=== PATIENT | male | born 1955 | race Caucasian/White ===

== ENCOUNTER 2021-12-23 06:21 | Day surgery (SDC) | payer MEDICARE, OTHER, SELFPAY ==
[2021-12-23] MEDS: Lactated Ringers 1,000 ML 15 ML IV (06:55)
[2021-12-23 06:56] VITALS: BP 145/85; PULSE 77; RESP 18; TEMP 37; O2SAT 98; BMI 57.4
--- NOTE | 2021-12-23 07:51 | RAD_ITS ---
STUDY: INTRAOPERATIVE FLUOROSCOPY TECHNIQUE: The examination was performed with referring physician in attendance. Under fluoroscopic observation, fluoroscopic images were obtained. Radiologist was not present for the study. Radiologist did not perform the procedure. This dictation is for documentation of the radiation dosage only. There is no interpretation of the images. TOTAL NUMBER OF IMAGES: 1 COMPARISON: None RADIATION DOSE: 12 mGy FLUOROSCOPY TIME: 8.7 seconds REASON FOR EXAM: LT HIP INJECTION Male, 66 years old. FINDINGS: Under fluoroscopic assistance, a left hip injection was performed. There is a single images of the left hip. Contrast visualized in the abdomen. RAD/Fluoro Guided Needle Placement IMPRESSION: Fluoroscopic assistance images were obtained. Dictation for documentation purposes only. Electronically Signed: Camilo Taylor MD at 16:15 EDT ,
[2021-12-23] MEDS: Lidocaine 1% (2ml-nursery) 2 ML VIAL (07:56)
[2021-12-23] MEDS: MethylPREDNISolone Acetate 80 MG/ML Vial (07:58)
[2021-12-23] MEDS: Bupivacaine 0.25% 30 ML Vial (07:58)
[2021-12-23 08:05] VITALS: BP 145/85; PULSE 74; RESP 16; TEMP 36.6; O2SAT 95
[2021-12-23 08:10] VITALS: BP 128/76; BP 145/85; PULSE 73; RESP 16; O2SAT 96
[2021-12-23 08:15] VITALS: BP 133/76; BP 145/85; PULSE 72; RESP 16; O2SAT 95
[2021-12-23 08:20] VITALS: BP 144/75; BP 145/85; PULSE 72; RESP 16; TEMP 36.9; O2SAT 95
[2021-12-23 08:52] VITALS: BP 145/85
--- NOTE | 2021-12-23 11:00 | PCM.OPRPT ---
Report of Operation Date of Procedure: 12/23/21 Description of Surgical Findings:: PREOPERATIVE DIAGNOSIS: Osteoarthritis of the left hip POSTOPERATIVE DIAGNOSIS: Osteoarthritis of the left hip PROCEDURE PERFORMED: Left hip intraarticular steroid injection under fluoroscopy guidance. ANESTHESIA: MAC. BLOOD LOSS: Minimal. COMPLICATIONS: None. DESCRIPTION OF PROCEDURE: History and physical of today was reviewed. Risks and benefits of the procedure were explained. The patient understood and agreed to proceed. Informed consent was obtained. IV inserted per routine protocol. The patient was taken to the operating room and placed in the supine position. The left hip area was prepped and draped in a sterile fashion using iodine x3. Under fluoroscopy guidance on AP view, the left hip joint was visualized. The skin and subcutaneous tissue was anesthetized with approximately 3 mL of 1% lidocaine using a 25-gauge regular needle approximately 3 cm cephalad to the left greater trochanter. Under direct visualization with fluoroscopy on an AP view, using a 22-gauge 5-inch spinal needle, the needle was advanced via the skin using the lateral approach. The tip of the needle was maneuvered and directed towards the superiormost aspect of the hip joint. Once the tip of the needle was at the vicinity of the joint, after negative aspiration for blood and positive aspiration of synovial fluid, a total of 1 mL of contrast was injected to confirm correct placement of the needle as well as halo spread around the hip joint. After repeated negative aspiration for blood and confirmation on AP as well as oblique view, a total of 10 mL of preservative-free 0.25% Marcaine with 80 mg of Depo-Medrol was injected easily. The needle was then removed intact. The patient experienced no sign or symptoms of intrathecal or intravascular injection. The patient experienced no paresthesia. The procedure was completed without any apparent difficulty or any complications. The patient appeared to tolerate it well. ASSESSMENT AND PLAN: This is a 66-year-old male with osteoarthritis of the left hip status post left hip intra-articular steroid injection under fluoroscopic guidance, patient will continue his current medications, patient will follow in approximately 2 weeks for reevaluation.
== END 2021-12-23 08:54 | disposition home or self-care (01) ==
LOC: SDC 06:36 → AC 06:36
PROVIDERS: PCP Physician Assistant; Referring Provider Anesthesiology Pain Medicine; Visit Provider Anesthesiology Pain Medicine
PROC: 3E0U3GC Introduction of Other Therapeutic Substance into Joints, Percutaneous Approach (ICD-10-PCS; CPT 20610; principal; 2021-12-23 07:55)
DX: M16.12 Unilateral primary osteoarthritis, left hip (principal); I25.10 Atherosclerotic heart disease of native coronary artery without angina pectoris; I10 Essential (primary) hypertension; Z79.82 Long term (current) use of aspirin; Z79.899 Other long term (current) drug therapy; Z96.641 Presence of right artificial hip joint; Z96.653 Presence of artificial knee joint, bilateral
CPT/HCPCS: 20610; 76000; 77002; J7120

== ENCOUNTER 2022-02-24 10:05 | Day surgery (SDC) | payer MEDICARE, OTHER, SELFPAY ==
--- NOTE | 2022-02-24 08:00 | RAD_ITS ---
PROCEDURE: Caudal epidural. DATE OF EXAMINATION: 02/24/2022 INDICATION: Male, 66 years old. Chronic low back pain. FLUOROSCOPY TIME (if supplied): (13 seconds) minutes/seconds. One image was submitted. RAD/Fluor Guidance for Spine Inj IMPRESSION: Intraoperative imaging provided for caudal epidural. Electronically Signed: Oliver Neves MD at 9:39 EDT ,
[2022-02-24 11:05] VITALS: BP 164/62; PULSE 83; RESP 18; TEMP 36.7; O2SAT 97; BMI 56.9
[2022-02-24] MEDS: Lactated Ringers 1,000 ML 15 ML IV (11:12)
[2022-02-24] MEDS: Lidocaine 1% (30 ml sdv) 30 ML Vial (11:48)
[2022-02-24] MEDS: 0.9% Normal Saline (Pres. free 10 ML Vial (11:48)
[2022-02-24 11:56] VITALS: BP 132/84; BP 164/62; PULSE 85; RESP 16; TEMP 36.8; O2SAT 95
[2022-02-24 12:00] VITALS: BP 140/90; BP 164/62; PULSE 85; RESP 16; O2SAT 97
[2022-02-24 12:05] VITALS: BP 138/89; BP 164/62; PULSE 85; RESP 16; O2SAT 96
[2022-02-24 12:09] VITALS: BP 158/94; BP 164/62; PULSE 83; RESP 16; TEMP 36.9; O2SAT 97
[2022-02-24 12:32] VITALS: BP 164/62
--- NOTE | 2022-02-24 12:42 | OP.PCM_ITS ---
Report of Operation Date of Procedure: 02/24/22 Pre-Operative Diagnosis: Lumbosacral radiculopathy, lumbosacral degenerative di sc disease, lumbosacral spinal stenosis Post-Operative Diagnosis: Lumbosacral radiculopathy, lumbosacral degenerative disc disease, lumbosacral spinal stenosis Surgery/Procedure Performed:: Caudal epidural steroid injection under fluoroscopic guidance Type of Anesthesia: MAC Estimated Blood Loss (mL): Minimal Description of Procedure: DESCRIPTION OF PROCEDURE: History and physical of today was reviewed. Risks and benefits of the procedure were explained. The patient understood and agreed to proceed. Informed consent was obtained. IV inserted per routine protocol. The patient was taken to the operating room and placed in the prone position with a pillow positioned underneath the abdomen. The lower back and tailbone area was prepped and draped in a sterile fashion using iodine x3. Under fluoroscopy guidance on a lateral view, the caudal space was identified. The skin and subcutaneous tissue was anesthetized with approximately 3 mL of 1% lidocaine using a 25-gauge regular needle. Under direct visualization with fluoroscopy, using a 22-gauge 3-1/2-inch spinal needle, the needle was advanced via the skin through the sacral hiatus. The tip of the needle was passed through the sacrococcygeal ligament and advanced to approximately S4 area. After negative aspiration of blood or CSF, a total of 3 mL of contrast was injected to confirm correct placement of the needle as well as cephalad spread. The spread was followed to approximately L5 area. After confirmation on AP as well as lateral view and repeated negative aspiration, a total of 15 mL of preservative-free 0.125% Marcaine with 80 mg of Depo-Medrol was injected easily. The needle was then removed intact. The patient experienced no sign or symptoms of intrathecal or intravascular injection. The patient experienced no paresthesia. The procedure was completed without any apparent difficulty or any complications. The patient appeared to tolerate it well. ASSESSMENT AND PLAN: This is a 66-year-old male with lumbosacral radiculopathy, lumbosacral degenerative disc disease, lumbosacral spinal stenosis status post caudal epidural steroid injection, patient will continue his current medications, patient will follow in approximately 2 weeks for reevaluation. Complications None
--- NOTE | 2022-03-12 16:22 | PCM.HP.STD ---
[facility] Date of Admission: 02/24/22 Chief Complaint: Chief Complaint: 70% improvement in the left hip History of Present Illness: This is a 66 Y/O male who was seen and evaluated at our office today as a follow up. Pain: Left hip Quality: constant when on feet Region: left hip radiates down left leg to knee Severity: aching,burning Timing: august 2020 Aggravated by: walking, laying in bed Relieved by: swimming Pain score (out of 10): 6/10 walking Other info: Patient is here for a follow up.Reports 70% improvement in the left hip from the injection initially but states it is now more like 30%.Reports pain in the left hip that radiates down the left leg to the knee.Reports the pain is constant when standing or walking and is more of a burn.States the pain varies in intensity.Review Xray of he lumbar spine.Will need a refill on the nabumetone if we can refill. Review of Systems: Notes weight gain. Patient denies any recent fever, chills, headache vision or hearing problems. No cp, sob, jeronimo, pnd, orthopnea, or peripheral edema.They note no lumps or swollen glands, no new rashes, changing moles, or change in bowel or bladder function.Mood has been good overall. Past Medical History: h/o hypertension h/o obstructive sleep apnea h/o prediabetes h/o Gout h/o bradycardia h/o carpal tunnel syndrome h/o hypertriglyceridemia h/o skin cancer s/p Laparoscopic Cholecystectomy s/p left total knee replacement s/p right total knee replacement s/p tonsillectomy s/p right total hip replacement Family History: ======== Structured Family History ======== Father: Hypertension, Osteoarthritis, Coronary artery disease; melanoma Social History: [Tobacco: Never smoker Pipe Smoker: No Cigar Smoker: No Chewing Tobacco User: No Electronic Cigarette User: No] Living situation: 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 drugs: denies Allergies: Cipro, Latex Medications: 1) Adult Aspirin 325 mg oral tablet, Take 1 tablet by mouth once daily 2) allopurinol 300 mg oral tablet, Take 1 tablet by mouth once daily 3) amLODIPine 10 mg oral tablet, Take 1 tablet by mouth once daily 4) curcumin , daily 5) cyclobenzaprine 10 mg oral tablet, Take 1 tablet by mouth 3 Times a Day prn 6) hydroCHLOROthiazide 25 mg oral tablet, Take 1 tablet by mouth once daily 7) multivitamin , daily 8) nabumetone 750 mg oral tablet, Take 1 tablet by mouth 2 times a Day 9) quinapril 40 mg oral tablet, Take 1 tablet by mouth once daily Physical Examination: Wt: 417.4 lb Ht/Ln: 71 in BMI: 58.2 BP: 196/75 Pulse: 73 RR: 16 Temp: 96.9F Pain: 4 Well nourished and well developed in no acute distress. Alert and oriented to person, place and time. Affect is normal and appropriate. Mucosa pink and moist. Respirations even and unlabored. Neck is supple without significant lymphadenopathy or thyromegaly. Abdomen soft & non-tender. No HSM or masses appreciated. Extremities show no cyanosis, clubbing, or edema. Gait is Antalgic. Bilateral lumbar facet loading is positive. Lumbar paraspinal muscle tenderness. Lumbar ROM is limited due to pain. Motor and sensory exam is unchanged. Goals: Health Concerns: Assessment & Plan: # Lumbosacral spondylosis (M47.817): # Degeneration of lumbosacral intervertebral disc (M51.37): # Lumbosacral radiculopathy (M54.17): # Arthritis of left hip (M13.852): # Hip pain Pain in left hip (M25.552): # Back pain (M54.9): # Long-term current use of drug therapy (Z79.899): Continue current medication regime. OARRS was reviewed today. UDS was reviewed, pt appears compliant SOAPP score is 0 Xray of the lumbar spine was reviewed with the pt today and they appear to understand. There are no signs of diversion or addiction with the pt, there is also no signs of abuse or misuse, continues to do well with their medications without any side effects, we will continue monitoring the pt closely. Pt states he is not having any side effects from elevated BP, pt does not think this blood pressure is accurate. Reviewed with the pt today our opioid agreement and they appear to understand. PEG was reviewed today. Life style modifications were also discussed today and the pt appears to understand. Weight loss was recommended today through diet and exercise. Risks and benefits of the above meds were discussed with the pt and they appear to understand. The common side effects of the medications were discussed and all of their questions and concerns were answered and they appear to understand Discussed natural and expected course of this diagnosis and need to alert me if symptoms do not follow expected course, or if any worse. Pt is to continue with his PT and HEP. Pt has tried multiple modalities in the past with little or no success, will schedule the pt for a therapeutic/diagnostic caudal epidural steroid injection under fluoroscopy We have discussed the risks, benefits as well as alternatives of the procedure and the patient appears to understand and would like to proceed with the above plan. The above plan was discussed today with the pt in detail and they appear to understand and agrees to continue with the plan. HPI Radha KALI ANDERS, is a 66 M who presents [facility] Medical History (Updated 12/16/21 @ 15:01 by Veronica Ham) Ambulates with cane Arthritis Back pain Cancer Cardiology follow-up encounter CPAP (continuous positive airway pressure) dependence Heartburn History of echocardiogram History of edema History of irregular heartbeat History of pain when walking History of stress test Hypertension Loss of hearing Marijuana use Non-smoker Shortness of breath on exertion Home Medications allopurinol 300 mg tablet 300 mg PO DAILY 12/16/21 [History Last Taken Unknown] amlodipine 10 mg tablet 10 mg PO QHS 12/16/21 [History Last Taken Unknown] ascorbic acid (vitamin C) 1,000 mg capsule,extended release 1,000 cap PO DAILY 12/16/21 [History Last Taken Unknown] aspirin 325 mg capsule 325 mg PO DAILY 12/16/21 [History Last Taken Unknown] cholecalciferol (vitamin D3) 25 mcg (1,000 unit) tablet (Vitamin D3) 25 mcg PO DAILY 12/16/21 [History Last Taken Unknown] hydrochlorothiazide 25 mg tablet 25 mg PO DAILY 12/16/21 [History Last Taken 02/24/22 04:30] quinapril 40 mg tablet 40 mg PO BID 12/16/21 [History Last Taken 02/24/22 04:30] saw palm 160 mg-vit E 100 unit-selen 100 [id number]-[id number] tablet (Prostate Health) 1 tab PO DAILY 12/16/21 [History Last Taken Unknown] vitamin B complex 1 cap PO DAILY 12/16/21 [History Last Taken Unknown] Allergy/AdvReac Type Severity Reaction Status Date / Time latex Allergy Rash Verified 02/24/22 11:04 Surgical History (Updated 12/16/21 @ 15:01 by Veronica Ham) History of laparoscopic cholecystectomy Hx of tonsillectomy Hx of total hip arthroplasty Hx of total knee arthroplasty Social History Smoking Status: Never smoker Vital Signs Vital Signs Vital Signs: Weight Weight: 185.2 kg Body Mass Index (BMI) 56.9
== END 2022-02-24 12:56 | disposition home or self-care (01) ==
LOC: SDC 10:27 → AC 10:32
PROVIDERS: PCP Physician Assistant; Referring Provider Anesthesiology Pain Medicine; Visit Provider Anesthesiology Pain Medicine
PROC: 3E0S3BZ Introduction of Anesthetic Agent into Epidural Space, Percutaneous Approach (ICD-10-PCS; CPT 62282; principal; 2022-02-24 12:00)
DX: M48.07 Spinal stenosis, lumbosacral region (principal); M51.17 Intervertebral disc disorders with radiculopathy, lumbosacral region; M10.9 Gout, unspecified; Z79.82 Long term (current) use of aspirin; I10 Essential (primary) hypertension; M47.27 Other spondylosis with radiculopathy, lumbosacral region
CPT/HCPCS: 62323; 64483; 77003; J7120; J3490

== ENCOUNTER → 2022-09-30 | Outpatient (CLI) | payer OTHER, MEDICARE, SELFPAY ==
[2022-09-30 16:07] LABS: Erythrocyte Sedimentation Rate 10 mm/hr (0-20)
[2022-09-30 16:20] LABS: AST(SGOT) 28 U/L (15-37); Alanine Aminotransfer ALT/SGPT 46 U/L (16-61); Albumin, Serum 3.6 g/dL (3.2-5.0); Alkaline Phosphatase 70 U/L (45-117); Anion Gap 5 (5-15); BUN 18 mg/dL (7-18); BUN/Creat Ratio 18.9 RATIO (10-20); CRP 3.93 mg/L (0.0-3.0); Calcium,Total 9.2 mg/dL (8.5-10.1); Chloride 105 mmol/L (98-107); Creatinine, Serum 0.95 mg/dL (0.70-1.30); EST Glomerular Filtration Rate 84 mL/min (>60); Est Glom Filt Rate - Afr Amer 102 mL/min (>60); Globulin 3.6 g/dL (2.2-4.2); Glucose 136 mg/dL (74-106); Potassium 3.8 mmol/L (3.5-5.1); Protein, Total 7.2 g/dL (6.4-8.2); Rheumatoid Factor < 10.0 IU/mL (<15); Sodium Level 138 mmol/L (136-145); Uric Acid 7.3 mg/dL (3.5-7.2)
[2022-09-30 16:34] LABS: T4 Free Direct 1.16 ng/dL (0.76-1.46); Thyroid Stim Hormone (TSH) 1.19 uIU/mL (0.358-3.74)
[2022-10-02 15:09] LABS: Anti-Nuclear Antibody Test Negative (.)
== END | disposition home or self-care (01) ==
PROVIDERS: PCP Physician Assistant; Referring Provider Physician Assistant; Visit Provider Physician Assistant
DX: I77.89 Other specified disorders of arteries and arterioles (principal); R63.8 Other symptoms and signs concerning food and fluid intake; I10 Essential (primary) hypertension
CPT/HCPCS: 36415; 80053; 84439; 84443; 84550; 85652; 86038; 86140; 86431